=== PATIENT | male | born 1965 | race Caucasian/White ===

== ENCOUNTER 2021-07-15 18:32 | Emergency (ER) | payer BC ==
[~2021-07-15] VITALS: Ht 185.4 cm; Wt 104.3 kg
[2021-07-15] MEDS ORDERED: XARELTO10 MG PO (19:10)
[2021-07-15] MEDS ORDERED: LISINOPRIL5 MG PO (19:10)
[2021-07-15] MEDS ORDERED: COREG25 MG PO (19:11)
[2021-07-15] MEDS ORDERED: FUROSEMIDE20 MG PO (19:11)
[2021-07-15] MEDS ORDERED: DIGOXIN62.5 MCG PO (19:11)
[2021-07-15] MEDS ORDERED: GLIPIZIDE ER2.5 MG PO (19:12)
[2021-07-15] MEDS ORDERED: AMOXICILLIN500 MG PO (19:12)
[2021-07-15] MEDS ORDERED: METFORMIN HCL500 M2 PO (19:12)
== END 2021-07-15 21:35 | disposition home or self-care (01) ==
LOC: ED 18:32
DX: K91.841 Postprocedural hemorrhage of a digestive system organ or structure following other procedure (principal); E11.9 Type 2 diabetes mellitus without complications; I48.91 Unspecified atrial fibrillation; Z79.899 Other long term (current) drug therapy; Z79.01 Long term (current) use of anticoagulants; Z79.4 Long term (current) use of insulin
CPT/HCPCS: 36415; 85025; 96374; 99283-25